=== PATIENT | male | born 1945 | race Caucasian/White ===

== ENCOUNTER 2021-08-25 08:18 | Day surgery (SDC) | payer BC, OTHER ==
[2021-08-22 15:57] VITALS: BMI 24.9
[2021-08-25 09:57] VITALS: PULSE 98
[2021-08-25 09:58] VITALS: BP 104/63; TEMP 97.1
== END 2021-08-25 10:00 | disposition home or self-care (01) ==
LOC: FASU-ENDO 08:18
PROVIDERS: ATTEND Internal Medicine Gastroenterology
PROC: 0DBN8ZX Excision of Sigmoid Colon, Via Natural or Artificial Opening Endoscopic, Diagnostic (ICD-10-PCS; principal; 2021-08-25 09:05)
DX: Z12.11 Encounter for screening for malignant neoplasm of colon (principal); D12.7 Benign neoplasm of rectosigmoid junction; K57.30 Diverticulosis of large intestine without perforation or abscess without bleeding
CPT/HCPCS: 88305-TC